=== PATIENT | female | born 1965 | race Caucasian/White ===

== ENCOUNTER 2023-08-03 12:26 | Inpatient (IN) | payer OTHER ==
[2023-08-03] MEDS ORDERED: Ondansetron PF 4 MG/2 ML Vial ONE ×2 (12:53→13:24)
[2023-08-03] MEDS ORDERED: Rocuronium Bromide 10 MG/ML (10ML VIAL) ONE ×2 (12:53→13:24)
[2023-08-03] MEDS ORDERED: Lidocaine 1% PF 5 ML VIAL ONE (12:53)
[2023-08-03] MEDS ORDERED: Dexamethasone 4 mg/ml Vial ONE (12:53)
[2023-08-03] MEDS ORDERED: Bupivacaine 0.25% HCL 30 ML VIAL ONE (12:53)
[2023-08-03] MEDS ORDERED: EPINEPHrine 1 MG/ML VIAL ONE (12:53)
[2023-08-03] MEDS ORDERED: Bupivacaine PF 0.5% 30 ML VIAL ONE (12:53)
[2023-08-03] MEDS ORDERED: SUGAMMADEX SODIUM 200 MG/2 ML VIAL ONE (12:54)
[2023-08-03] MEDS ORDERED: PROPOFOL 40 ML ONE (12:54)
[2023-08-03] MEDS ORDERED: fentaNYL PF 100 MCG/2 ML SYRINGE ONE (12:54)
[2023-08-03] MEDS ORDERED: Succinylcholine 200 MG/10 ml SYRINGE FS ONE ×2 (12:55→13:24)
[2023-08-03] MEDS ORDERED: Sodium Chloride 0.9% 100 ML ONE (13:02)
[2023-08-03] MEDS ORDERED: Piperacillin/Tazobactam 3.375 GM VIAL ONE (13:02)
[2023-08-03] MEDS ORDERED: Scopolamine 1 mg/72 hour Patch ONE (13:02)
[2023-08-03] MEDS ORDERED: Ketorolac Tromethamine 30 MG/ML VIAL ONE (13:02)
[2023-08-03] MEDS ORDERED: PROPOFOL 200 MG/20 ML VIAL ONE (13:24)
[2023-08-03] MEDS ORDERED: PHENYLEPHRINE-NS 100 MCG/ML 10 ML SYRINGE ONE (13:24)
[2023-08-03] MEDS ORDERED: Dexamethasone 20 MG/5 ML VIAL ONE (13:24)
[2023-08-03] MEDS ORDERED: ePHEDrine Sulfate 50 MG/10 ML VIAL ONE ×2 (13:24→13:51)
[2023-08-03] MEDS ORDERED: fentaNYL 50 mcg/mL 1 mL Vial ONE (14:14)
[2023-08-03] MEDS ORDERED: Ondansetron HCl/PF 4 MG/2 ML Vial IVP PRN (14:34)
[2023-08-03] MEDS ORDERED: HYDROmorphone 2 MG/ML VIAL SLOW IVP PRN (14:34)
[2023-08-03] MEDS ORDERED: Meperidine HCl/PF 25 MG/ML VIAL SLOW IVP PRN (14:34)
[2023-08-03] MEDS ORDERED: Promethazine HCl 25 MG/ML VIAL IM PRN (14:34)
[2023-08-03] MEDS ORDERED: Morphine 4 MG/ML VIAL SLOW IVP PRN (15:11)
[2023-08-03] MEDS ORDERED: hydrALAZINE 20 MG/ML VIAL SLOW IVP PRN (15:11)
[2023-08-03] MEDS ORDERED: TETANUS, DIPHTHERIA TOX,ADULT (TDVAX) 0.5 ML VIAL IM ONE (15:11)
[2023-08-03] MEDS ORDERED: traMADol HCl 50 MG TAB PO PRN (15:11)
[2023-08-03] MEDS ORDERED: Ondansetron ODT 4 MG TAB PO PRN (15:11)
[2023-08-03] MEDS ORDERED: Ondansetron PF 4 MG/2 ML Vial IVP PRN (15:11)
[2023-08-03] MEDS ORDERED: Sodium Chloride 0.9% 1,000 ML IV SCH (15:30)
[2023-08-03] MEDS ORDERED: FLU VACC QS2023-24(6MOS UP)/PF 60 MCG/0.5 ML SYRINGE IM ONE (17:30)
[2023-08-03] MEDS: Acetaminophen 500 MG TAB PO SCH ×2 (17:35→20:23)
[2023-08-03] MEDS: D5 1/2 NS w/20 mEq KCL 1,000 ML IV SCH ×2 (18:36→20:22)
[2023-08-03 18:40] VITALS: BMI 25.4
[2023-08-03] MEDS: Piperacillin/Tazobactam 4.5 GM in Sodium Chloride 0.9% 100 ML IVPB SCH (20:22)
[2023-08-03] MEDS: Ketorolac Tromethamine 30 MG/ML VIAL IVP SCH (20:23)
[2023-08-04] MEDS: Ketorolac Tromethamine 30 MG/ML VIAL IVP SCH ×2 (03:29→09:23)
[2023-08-04] MEDS: Piperacillin/Tazobactam 4.5 GM in Sodium Chloride 0.9% 100 ML IVPB SCH (05:25)
[2023-08-04 05:57] LABS: #Monocytes 0.6 thou/uL (0.11-0.59); #Neutrophils 8.4 thou/uL (1.40-6.50); %Basophils 0.1 % (0.0-1.0); %Lymphocytes 10.5 % (21.0-51.0); %Monocytes 5.8 % (0.0-10.0); %Neutrophils 83.2 % (42.0-75.0); Hematocrit 37.2 % (36.0-47.0); Hemoglobin 11.3 g/dL (12.0-16.0); Mean Corpuscular HGB CONC 30.4 g/dL (32.0-36.0); Mean Corpuscular Hemoglobin 27.7 pg (27.0-31.0); Mean Corpuscular Volume 91.2 fl (78.0-98.0); Mean Platelet Volume 9.8 fL (7.4-10.4); Platelet Count 175 10x3/uL (130-400); RBC Distribution Width 13.9 % (11.5-14.5); Red Blood Cell (RBC) Count 4.08 mill/uL (4.20-5.40); White Blood Cell (WBC) Count 10.1 10x3/uL (4.8-10.8)
[2023-08-04 06:24] LABS: ALT (SGPT) 22 U/L (8-55); AST (SGOT) 19 U/L (5-34); Alkaline Phosphatase 56 U/L (40-110); Anion Gap 12 mmol/L (10-20); BUN (Urea Nitrogen) 11 mg/dL (9.8-20.1); Bilirubin, Total 1.4 mg/dL (0.2-1.2); Calc. Creatinine Clearance 100 mL/min (70-130); Calcium 8.6 mg/dL (7.8-10.44); Carbon Dioxide 21 mmol/L (22-29); Chloride 108 mmol/L (98-107); Estimated GFR 102; Globulin 2.5 g/dL (2.4-3.5); Glucose 140 mg/dL (70-105); Potassium 3.7 mmol/L (3.5-5.1); Protein, Total 5.5 g/dL (6.0-8.3); Sodium 137 mmol/L (136-145)
[2023-08-04] MEDS ORDERED: Pantoprazole 40 MG VIAL IVP SCH (09:00)
[2023-08-04] MEDS: Acetaminophen 500 MG TAB PO SCH ×2 (09:23→13:16)
[2023-08-04 11:47] VITALS: BP 114/75; TEMP 98.2
[2023-08-04] MEDS ORDERED: Ibuprofen 600 MG TAB PO PRN (12:12)
[2023-08-04] MEDS ORDERED: [UNRECOGNIZED DRUG - OTHER] PO PRN (12:13)
[2023-08-04] MEDS ORDERED: Acetaminophen 500 MG TAB PO PRN (12:13)
[2023-08-04] MEDS ORDERED: ACETAMINOPHEN PO PRN (12:13)
[2023-08-04] MEDS ORDERED: PHENYLEPHRINE PO PRN (12:13)
[2023-08-04] MEDS ORDERED: traMADol HCl 50 MG TAB PO PRN (12:13)
[2023-08-04] MEDS ORDERED: CHLORPHENIRAMINE PO PRN (12:13)
[2023-08-04] MEDS ORDERED: DEXTROMETHORPHAN PO PRN (12:13)
[2023-08-04] MEDS ORDERED: [UNRECOGNIZED DRUG - OTHER] PO PRN (12:24)
[2023-08-04] MEDS: D5 1/2 NS w/20 mEq KCL 1,000 ML IV SCH (13:18)
[2023-08-04] MEDS ORDERED: Oseltamivir 75 MG CAP PO SCH (21:00)
[2023-08-04] MEDS ORDERED: Amoxicillin/Potassium Clav 500 MG TAB PO SCH (21:00)
[2023-08-05] MEDS ORDERED: MULTIVITAMIN PO SCH (09:00)
[2023-08-05] MEDS ORDERED: Multivit, Chewable SF 1 TAB PO SCH (09:00)
[2023-08-05] MEDS ORDERED: Ascorbic Acid 500 mg Chewable Tablet PO SCH (09:00)
== END 2023-08-04 15:15 | disposition home or self-care (01) | DRG 399 ==
LOC: SDC 12:26 → SURG B 16:16
PROVIDERS: ADMIT Specialist; ATTEND Specialist
PROC: 0DTJ4ZZ Resection of Appendix, Percutaneous Endoscopic Approach (ICD-10-PCS; principal; 2023-08-03)
DX: K35.33 Acute appendicitis with perforation, localized peritonitis, and gangrene, with abscess (principal); Z79.899 Other long term (current) drug therapy; Z90.710 Acquired absence of both cervix and uterus; Z98.890 Other specified postprocedural states
CPT/HCPCS: 36415; 80053; 85025; 88304; A4314; A4649; C9113; J0171; J1100; J1650; J1885; J2405; J2543; J2704; J3010; J3480; J3490; J7050; S0020

== ENCOUNTER 2024-08-01 09:20 | Outpatient (CLI) | payer OTHER | END 2024-08-01 09:21 | disposition home or self-care (01) | LOC: BICMAMMO 09:20 | PROVIDERS: ATTEND Family Medicine | DX: Z12.31 Encounter for screening mammogram for malignant neoplasm of breast (principal) | CPT/HCPCS: 77063; 77067 ==